=== PATIENT | male | born 1985 | race Caucasian/White ===

== ENCOUNTER 2017-03-19 13:07 | Emergency (ER) | payer SELFPAY ==
[~2017-03-19] VITALS: Ht 185.4 cm; Wt 140.6 kg
[~2017-03-19 13:07] MED LIST: ASPI1TAB PO; CEFU500T5 PO; DM/P295L13 PO; PRED20TA PO; TRAM-21 PO
[2017-03-19] MEDS ORDERED: KETOROLAC 30 MG/ML VIAL IVP ONE (14:00)
[2017-03-19] MEDS ORDERED: ASPIRIN 81 MG CHEW (CHILDREN'S ASA) PO ONE (14:00)
[2017-03-19 14:36] LABS: BASOPHILS % (AUTO) 0 % (0-10); EOSINOPHILS # (AUTO) 0.1 10^3/uL (0.0-0.3); EOSINOPHILS % (AUTO) 1 % (0-10); LYMPHOCYTES # (AUTO) 2.6 X 10^3 (1.0-4.0); LYMPHOCYTES % (AUTO) 25 % (12-44); MEAN CORPUSCULAR HEMOGLOBIN 32 PG (25-34); MEAN CORPUSCULAR HGB CONC 35 G/DL (32-36); MEAN CORPUSCULAR VOLUME 91 FL (80-99); MEAN PLATELET VOLUME 10.1 FL (7.4-10.4); MONOCYTES # (AUTO) 0.9 X 10^3 (0.0-1.0); MONOCYTES % (AUTO) 9 % (0-12); NEUTROPHILS # (AUTO) 6.5 X 10^3 (1.8-7.8); NEUTROPHILS % (AUTO) 65 % (42-75); PLATELET COUNT 221 10^3/uL (130-400); RED BLOOD COUNT 5.03 10^6/uL (4.35-5.85); RED CELL DISTRIBUTION WIDTH 12.3 % (10.0-14.5)
--- NOTE | 2017-03-19 14:39 | ED Chest Pain ---
General Chief Complaint: Chest Pain Stated Complaint: CP Nursing Triage Note: PT CO OF CHEST PAIN STATES STARTED YESTERDAY,RATES PAIN 7/10. STATES EXCEDRIN MADE BETTER LAST PM BACK THIS AM, STATES HURTS WHEN MOVE ARM CERTAIN WAY. Nursing Sepsis Screen: No Definite Risk Source: patient Exam Limitations: no limitations History of Present Illness Time seen by provider: 13:30 Initial Comments This 31-year-old young man presents to emergency room with complaints of left upper chest pain that started yesterday morning. He describes it as a tightness ranging from 5/10-7/10. It is still present now. The only exacerbating factor he has identified is a reaching motion. He woke with the pain this morning. He took Excedrin last night which did help him sleep. He does smoke tobacco and drinks a significant amount of alcohol per day. He is primarily concerned that this may be pain related to a cardiac condition and he is specifically requesting cardiac evaluation. He denies any lower extremity symptoms. Allergies and Home Medications Allergies Coded Allergies: No Known Drug Allergies (Unverified , 08/22/14) Review of Systems Constitutional: no symptoms reported EENTM: No Symptoms Reported Respiratory: No Symptoms Reported Cardiovascular: See HPI Gastrointestinal: No Symptoms Reported Genitourinary: No Symptoms Reported Musculoskeletal: see HPI Skin: no symptoms reported Psychiatric/Neurological: No Symptoms Reported Endocrine: No Symptoms Reported Past Zjmbgvs-Jloqtw-Fytxqd Hx Patient Social History Alcohol Use: Regular Use Number of Drinks Today: 0 Alcohol Beverage of Choice: Beer Recreational Drug Use: No Smoking Status: Current Everyday Smoker Type Used: Cigarettes Recent Foreign Travel: No Contact w/Someone Who Travel: No Recent Infectious Disease Expo: No Recent Hopitalizations: No Physical Abuse: No Sexual Abuse: No Immunizations Up To Date Tetanus Booster (TDap): More than 5yrs PED Vaccines UTD: No Surgeries History of Surgeries: No Respiratory History of Respiratory Disorde: No Cardiovascular History of Cardiac Disorders: No Neurological History of Neurological Disord: No Reproductive System Hx Reproductive Disorders: No Sexually Transmitted Disease: No HIV/AIDS: No Genitourinary History of Genitourinary Disor: No Gastrointestinal History of Gastrointestinal Di: No Musculoskeletal History of Musculoskeletal Dis: No Endocrine History of Endocrine Disorders: No HEENT History of HEENT Disorders: No Loss of Vision: Denies Hearing Impairment: Denies Cancer History of Cancer: No Psychosocial History of Psychiatric Problem: Yes Behavioral Health Disorders: Bipolar Suicide Risk Score: 0 Integumentary History of Skin or Integumenta: No Blood Transfusions History of Blood Disorders: No Adverse Reaction to a Blood Tr: No Physical Exam Vital Signs Vital Sign - Last 12Hours 03/19/17 13:10 Temp 97.2 Pulse 103 Resp 25 B/P (MAP) 136/99 (111) Pulse Ox 96 Capillary Refill : Less Than 3 Seconds General Appearance: No Apparent Distress, WD/WN, Obese HEENT: PERRL/EOMI, Normal ENT Inspection Neck: Normal Inspection Respiratory: Chest Non Tender, Lungs Clear, Normal Breath Sounds, No Accessory Muscle Use, No Respiratory Distress Cardiovascular: Regular Rate, Rhythm, No Edema, No Murmur, Normal Peripheral Pulses Gastrointestinal: Normal Bowel Sounds, Non Tender, Soft Extremity: Normal Inspection, Non Tender, No Calf Tenderness, No Pedal Edema, Other (negative Britany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, fly finisher II-XII Norm as Tested Skin: Normal Color, Warm/Dry Progress/Results/Core Measures Results/Orders Lab Results Laboratory Tests Test 03/19/17 14:15 Range/Units White Blood Count 10.0 4.3-11.0 10^3/uL Red Blood Count 5.03 4.35-5.85 10^6/uL Hemoglobin 16.0 13.3-17.7 G/DL Hematocrit 46 40-54 % Mean Corpuscular Volume 91 80-99 FL Mean Corpuscular Hemoglobin 32 25-34 PG Mean Corpuscular Hemoglobin Concent 35 32-36 G/DL Red Cell Distribution Width 12.3 10.0-14.5 % Platelet Count 221 130-400 10^3/uL Mean Platelet Volume 10.1 7.4-10.4 FL Neutrophils (%) (Auto) 65 42-75 % Lymphocytes (%) (Auto) 25 12-44 % Monocytes (%) (Auto) 9 0-12 % Eosinophils (%) (Auto) 1 0-10 % Basophils (%) (Auto) 0 0-10 % Neutrophils # (Auto) 6.5 1.8-7.8 X 10^3 Lymphocytes # (Auto) 2.6 1.0-4.0 X 10^3 Monocytes # (Auto) 0.9 0.0-1.0 X 10^3 Eosinophils # (Auto) 0.1 0.0-0.3 10^3/uL Basophils # (Auto) 0.0 0.0-0.1 10^3/uL Sodium Level 139 135-145 MMOL/L Potassium Level 3.9 3.6-5.0 MMOL/L Chloride Level 104 98-107 MMOL/L Carbon Dioxide Level 22 21-32 MMOL/L Anion Gap 13 5-14 MMOL/L Blood Urea Nitrogen 10 7-18 MG/DL Creatinine 0.72 0.60-1.30 MG/DL Estimat Glomerular Filtration Rate > 60 BUN/Creatinine Ratio 14 Glucose Level 103 70-105 MG/DL Calcium Level 10.0 8.5-10.1 MG/DL Total Bilirubin 0.4 0.1-1.0 MG/DL Aspartate Amino Transf (AST/SGOT) 43 H 5-34 U/L Alanine Aminotransferase (ALT/SGPT) 52 0-55 U/L Alkaline Phosphatase 75 40-136 U/L Troponin I < 0.30 <0.30 NG/ML Total Protein 7.1 6.4-8.2 GM/DL Albumin 4.2 3.2-4.5 GM/DL My Orders Orders - JAMA THOMAS MD Aspirin Chewable Tablet (Baby Aspirin Ch (03/19/17 14:00) Cbc With Automated Diff (03/19/17 14:00) Comprehensive Metabolic Panel (03/19/17 14:00) Troponin I (03/19/17 14:00) Saline Lock/Iv-Start (03/19/17 14:00) Ekg Tracing (03/19/17 14:00) Monitor-Rhythm Ecg Trace Only (03/19/17 14:00) Chest Pa/Lat (2 View) (03/19/17 14:00) Ketorolac Injection (Toradol Injection) (03/19/17 14:00) Medications Given in ED Vital Signs/I&O Vital Sign - Last 12Hours 03/19/17 03/19/17 13:10 15:20 Temp 97.2 Pulse 103 90 Resp 25 18 B/P (MAP) 136/99 (111) Pulse Ox 96 98 Blood Pressure Mean: 111 Progress Note #1: Time: 14:38 Progress Note Patient was seen and examined. Based on his history and age, cardiac cause of pain is felt very unlikely. However, patient is rather anxious that this may be pain related to a cardiac cause. He was offered evaluation with labs, chest x-ray, and EKG which he eagerly excepts. Toradol was administered for pain management. Progress Note #2: Progress Note Patient was given aspirin and Toradol which did reduce pain. Work-up was unremarkable. I spent greater than 20 min discussing alcohol and smoking cessation and other lifestyle modifications with patient and . They were appreciative and plan to follow-up with a PCP. ECG Initial ECG Impression Date: Mar 19, 2017 Initial ECG Impression Time: 14:10 Initial ECG Rate: 86 Initial ECG Rhythm: Normal Sinus Initial ECG Intervals: Normal Initial ECG Impression: Normal Comment Normal sinus rhythm with no ST elevation or depression. Borderline left axis deviation by automated read. No abnormal intervals. Diagnostic Imaging Diagonstic Imaging: Xray Plain Films/CT/US/NM/MRI: chest Comments Chest x-ray viewed by me and report reviewed. See report below: NAME: DHAVAL ROY [facility] REC#: [id number] PT STATUS: REG ER : 1985 PHYSICIAN: JAMA THOMAS MD ADMIT DATE: 03/19/17/ER Draft Date of Exam:03/19/17 CHEST PA/LAT (2 VIEW) INDICATION: Anterior chest wall pain. COMPARISON: None. FINDINGS: Frontal and lateral views of the chest demonstrate normal heart size and pulmonary vascularity. The lungs are clear. There are no signs of infiltrate, pleural effusions or pneumothoraces. The visualized osseous structures show no acute abnormalities. IMPRESSION: 1. No acute process. No signs of infiltrates, effusions or pneumothoraces. Dictated on workstation # [id number] Dict: 03/19/17 1437 Trans: 03/19/17 1438 [id number] Interpreted by: LA PAEZ MD Departure Impression Impression: Primary Impression: Atypical chest pain Additional Impressions: Alcohol dependence Qualified Codes: F10.20 - Alcohol dependence, uncomplicated Tobacco dependence Disposition: 01 HOME, SELF-CARE Condition: Improved Departure-Patient Inst. Decision time for Depature: 15:05 Referrals: [facility] (PCP/Family) Primary Care Physician Patient Instructions: Chest Pain That Is Not Caused by the Heart (DC) Add. Discharge Instructions: You may take ibuprofen up to 600 mg every 6 hours as needed for pain. Take with food or milk to avoid irritation on your stomach. Return to the emergency room if symptoms worsen. Please make a follow-up appointment with your primary care provider to discuss your general health and to seek assistance with lifestyle changes. Work towards smoking cessation and reduction in alcohol consumption. You may use [id number]-awcppmp nicotine replacement such as gum, lozenges, and patches. Do not replace cigarettes with other inhaled nicotine. Focus on eating a healthy well balanced diet with plenty of fruits, vegetables, and lean meats. Incorporate exercise such as walking into your daily routines. All discharge instructions reviewed with patient and/or family. Voiced understanding. JAMA THOMAS MD Mar 19, 2017 14:38
[2017-03-19 14:54] LABS: ALANINE AMINOTRANSFERASE 52 U/L (0-55); ALBUMIN 4.2 GM/DL (3.2-4.5); ANION GAP 13 MMOL/L (5-14); ASPARTATE AMINO TRANSFERASE 43 U/L (5-34); BILIRUBIN,TOTAL 0.4 MG/DL (0.1-1.0); BLOOD UREA NITROGEN 10 MG/DL (7-18); BUN/CREATININE RATIO 14; CARBON DIOXIDE 22 MMOL/L (21-32); CHLORIDE 104 MMOL/L (98-107); CREATININE SERUM 0.72 MG/DL (0.60-1.30); GFR ESTIMATED > 60; GLUCOSE 103 MG/DL (70-105); POTASSIUM 3.9 MMOL/L (3.6-5.0); SODIUM 139 MMOL/L (135-145); TOTAL PROTEIN 7.1 GM/DL (6.4-8.2)
[2017-03-19 15:02] LABS: TROPONIN I < 0.30 NG/ML (<0.30)
[2017-03-19 15:20] VITALS: BP 120/80
== END 2017-03-19 15:27 | disposition home or self-care (01) ==
LOC: EDUNIT# 13:07 → ER 13:10
DX: R07.89 Other chest pain (principal); F31.9 Bipolar disorder, unspecified; F10.20 Alcohol dependence, uncomplicated; F17.210 Nicotine dependence, cigarettes, uncomplicated
CPT/HCPCS: 36415; 71020; 80053; 84484; 85025; 93005; 93041

== ENCOUNTER 2017-06-12 07:39 | Emergency (ER) | payer SELFPAY ==
[~2017-06-12] VITALS: Ht 182.9 cm; Wt 142.9 kg
--- OUTSIDE RECORDS SUMMARY | 2017-06-12 07:45 | XMS REPORT ---
Author Author CONNIE MONTALVO [facility] Address Unknown Care Team Providers Care Thread Winder Name Role Phone CONNIE MONTALVO Unavailable PROBLEMS Type Condition ICD9-CM Code [id number] Code Onset Dates Condition Status SNOMED Code Problem Morbid (severe) obesity due to excess calories E66.01 Active 256338302 Problem Elevated blood pressure reading without diagnosis of hypertension R03.0 Active 941105521 Problem Elevated fasting glucose R73.01 Active 585812911 Problem Mixed hyperlipidemia E78.2 Active 969522028 Problem Right foot pain M79.671 Active 404377040511884 Problem ETOH abuse F10.10 Active 71082092 ALLERGIES No Known Allergies SOCIAL HISTORY Never Assessed PLAN OF CARE Activity Details Follow Up prn Reason:PROPHY VITAL SIGNS Blood pressure systolic 125 mmHg 2016-08-09 Blood pressure diastolic 91 mmHg 2016-08-09 MEDICATIONS Medication Instructions Dosage Frequency Start Date End Date Duration Status [place] 5-325 MG Orally every 6 hrs 1 tablet as needed 6h 4 days Active Amoxicillin 500 MG Orally every 8 hrs 1 tablet 8h 7 days Active RESULTS No Results PROCEDURES Procedure Date Ordered Result Body Site LTD ORAL EVALUATION - PROBLEM FOCUS August 09, 2016 INTRAORL-PERIAPICAL 1 FILM [id number] August 09, 2016 INTRAORL-PERIAPICAL EA ADD FILM August 09, 2016 IMMUNIZATIONS No Known Immunizations MEDICAL (GENERAL) HISTORY Type Description Date Hospitalization History Strep throat 2014
--- OUTSIDE RECORDS SUMMARY | 2017-06-12 07:45 | XMS REPORT ---
Author Author CONNIE MONTALVO [facility] Address Unknown Care Team Providers Care Dip Unit Operator Name Role Phone SELVIN CONNIE Unavailable PROBLEMS Type Condition ICD9-CM Code [id number]-KL Code Onset Dates Condition Status SNOMED Code Problem Morbid (severe) obesity due to excess calories E66.01 Active 213325675 Problem Elevated blood pressure reading without diagnosis of hypertension R03.0 Active 614037666 Problem Elevated fasting glucose R73.01 Active 741425714 Problem Mixed hyperlipidemia E78.2 Active 504699660 Problem Right foot pain M79.671 Active 685281866194810 Problem ETOH abuse F10.10 Active 51949059 ALLERGIES No Known Allergies SOCIAL HISTORY Never Assessed PLAN OF CARE Activity Details Follow Up prn Reason:Impressions for Flipper #9 VITAL SIGNS Blood pressure systolic 130 mmHg 2016-05-15 Blood pressure diastolic 96 mmHg 2016-05-15 MEDICATIONS Unknown Medications RESULTS No Results PROCEDURES Procedure Date Ordered Result Body Site LTD ORAL EVALUATION - PROBLEM FOCUS May 15, 2016 INTRAORL-PERIAPICAL 1 FILM [id number] May 15, 2016 IMMUNIZATIONS No Known Immunizations MEDICAL (GENERAL) HISTORY Type Description Date Hospitalization History Strep throat 2014
--- OUTSIDE RECORDS SUMMARY | 2017-06-12 07:46 | XMS REPORT | Continuity of Care Document ---
Author Author [facility] Organization [facility] Address Unknown Phone Unavailable Allergies Active Description Code Type Severity Reaction Onset Reported/Identified Relationship to Patient Clinical Status Yes No Known Drug Allergies [id number] Drug Allergy Unknown N/A 08/22/2014 Medications There is no data. Problems Date Dx Coded Attending Type Code Diagnosis Diagnosed By 08/24/2014 BREANNE DIAL DO Ot 276.8 HYPOPOTASSEMIA 08/24/2014 BREANNE DIAL DO S Ot 305.1 TOBACCO USE DISORDER 08/24/2014 BREANNE DIAL DO S Ot 463 ACUTE TONSILLITIS 08/24/2014 BREANNE DIAL DO S Ot 475 PERITONSILLAR ABSCESS 08/24/2014 BREANNE DIAL DO S Ot 276.8 08/24/2014 BREANNE DIAL DO S Ot 305.1 08/24/2014 BREANNE DIAL DO S Ot 463 08/24/2014 BREANNE DIAL DO S Ot 475 01/26/2015 JANE AU DO Ot F31.9 BIPOLAR DISORDER, UNSPECIFIED 01/26/2015 JANE AU DO Ot Z53.21 PROC/TRTMT NOT CRD OUT D/T PT LV BEF SEE Procedures There is no data. Results Test Result Range Complete blood count (CBC) with automated white blood cell (WBC) differential - 03/19/17 14:15 Blood leukocytes automated count (number/volume) 10.0 10*3/uL 4.3-11.0 Blood erythrocytes automated count (number/volume) 5.03 10*6/uL 4.35-5.85 Venous blood hemoglobin measurement (mass/volume) 16.0 g/dL 13.3-17.7 Blood hematocrit (volume fraction) 46 % 40-54 Automated erythrocyte mean corpuscular volume 91 [foz_us] 80-99 Automated erythrocyte mean corpuscular hemoglobin (mass per erythrocyte) 32 pg 25-34 Automated erythrocyte mean corpuscular hemoglobin concentration measurement ( mass/volume) 35 g/dL 32-36 Automated erythrocyte distribution width ratio 12.3 % 10.0-14.5 Automated blood platelet count (count/volume) 221 10*3/uL 130-400 Automated blood platelet mean volume measurement 10.1 [foz_us] 7.4-10.4 Automated blood neutrophils/100 leukocytes 65 % 42-75 Automated blood lymphocytes/100 leukocytes 25 % 12-44 Blood monocytes/100 leukocytes 9 % 0-12 Automated blood eosinophils/100 leukocytes 1 % 0-10 Automated blood basophils/100 leukocytes 0 % 0-10 Blood neutrophils automated count (number/volume) 6.5 10*3 1.8-7.8 Blood lymphocytes automated count (number/volume) 2.6 10*3 1.0-4.0 Blood monocytes automated count (number/volume) 0.9 10*3 0.0-1.0 Automated eosinophil count 0.1 10*3/uL 0.0-0.3 Automated blood basophil count (count/volume) 0.0 10*3/uL 0.0-0.1 Comprehensive metabolic panel - 03/19/17 14:15 Serum or plasma sodium measurement (moles/volume) 139 mmol/L 135-145 Serum or plasma potassium measurement (moles/volume) 3.9 mmol/L 3.6-5.0 Serum or plasma chloride measurement (moles/volume) 104 mmol/L 98-107 Carbon dioxide 22 mmol/L 21-32 Serum or plasma anion gap determination (moles/volume) 13 mmol/L 5-14 Serum or plasma urea nitrogen measurement (mass/volume) 10 mg/dL 7-18 Serum or plasma creatinine measurement (mass/volume) 0.72 mg/dL 0.60-1.30 Serum or plasma urea nitrogen/creatinine mass ratio 14 NRG Serum or plasma creatinine measurement with calculation of estimated glomerular filtration rate > NRG Serum or plasma glucose measurement (mass/volume) 103 mg/dL 70-105 Serum or plasma calcium measurement (mass/volume) 10.0 mg/dL 8.5-10.1 Serum or plasma total bilirubin measurement (mass/volume) 0.4 mg/dL 0.1-1.0 Serum or plasma alkaline phosphatase measurement (enzymatic activity/volume) 75 U/L 40-136 Serum or plasma aspartate aminotransferase measurement (enzymatic activity/ volume) 43 U/L 5-34 Serum or plasma alanine aminotransferase measurement (enzymatic activity/volume ) 52 U/L 0-55 Serum or plasma protein measurement (mass/volume) 7.1 g/dL 6.4-8.2 Serum or plasma albumin measurement (mass/volume) 4.2 g/dL 3.2-4.5 Serum or plasma troponin i.cardiac measurement (mass/volume) - 03/19/17 14:15 Serum or plasma troponin i.cardiac measurement (mass/volume) < ng/ mL <0.30 Encounters ACCT No. Visit Date/Time Discharge Status Pt. Type Provider Facility Loc./Unit Complaint [id number] 03/19/2017 13:10:00 03/19/2017 15:27:00 DIS Emergency MARTHA SALAZAR, JAMA Godfrey [facility] ER CP [id number] 01/26/2015 15:49:00 01/26/2015 16:31:00 DIS Emergency JANE AU DO [facility] ER PSYCH [id number] 08/22/2014 19:29:00 08/24/2014 11:15:00 DIS Inpatient BREANNE DIAL DO [facility] 4TH TONSILLITIS W/ MICROABSCESSES BILAT,LEUKOCYTOSIS
[2017-06-12 07:51] VITALS: BP 147/93
[2017-06-12] MEDS ORDERED: NS IV 1000 ML 1,000 ML IV SCH ×2 (08:14→08:58)
[2017-06-12 08:32] LABS: BASOPHILS % (AUTO) 0 % (0-10); EOSINOPHILS # (AUTO) 0.1 10^3/uL (0.0-0.3); EOSINOPHILS % (AUTO) 1 % (0-10); HEMATOCRIT 48 % (40-54); HEMOGLOBIN 17.3 G/DL (13.3-17.7); LYMPHOCYTES # (AUTO) 2.6 X 10^3 (1.0-4.0); LYMPHOCYTES % (AUTO) 21 % (12-44); MEAN CORPUSCULAR HEMOGLOBIN 33 PG (25-34); MEAN CORPUSCULAR HGB CONC 36 G/DL (32-36); MEAN CORPUSCULAR VOLUME 91 FL (80-99); MEAN PLATELET VOLUME 10.1 FL (7.4-10.4); MONOCYTES # (AUTO) 1.7 X 10^3 (0.0-1.0); MONOCYTES % (AUTO) 14 % (0-12); NEUTROPHILS # (AUTO) 7.9 X 10^3 (1.8-7.8); NEUTROPHILS % (AUTO) 64 % (42-75); PLATELET COUNT 251 10^3/uL (130-400); RED BLOOD COUNT 5.25 10^6/uL (4.35-5.85); RED CELL DISTRIBUTION WIDTH 11.8 % (10.0-14.5); WHITE BLOOD COUNT 12.3 10^3/uL (4.3-11.0)
--- NOTE | 2017-06-12 08:39 | ED General ---
General Chief Complaint: Lower Extremity Stated Complaint: RT LEG SWELLING Nursing Triage Note: ARRIVED VIA AMB TO ROOM 05. COMPLAINS OF NON INJURY PAIN IN RIGHT FOOT AND SWELLING. STATES PAIN GOES UP HIS LEG. STATES THE SWELLING HAS BEEN THERE FOR A COUPLE OF MONTHS. ASLO COMPLAINS OF SOME SOA WITH THIS. Nursing Sepsis Screen: No Definite Risk Source of Information: Patient, Family Exam Limitations: No Limitations History of Present Illness Date Seen by Provider: Jun 12, 2017 Time Seen by Provider: 08:00 Initial Comments This 31-year-old young man presents to the emergency room with complaints of right lower extremity swelling, pain, erythema, and heat. The lateral aspect of his right ankle is erythematous with a petechial appearance. He reports having intermittent problems with pain and swelling long-term with this right ankle. He denies any known injury or trauma. There is a small scab on the anterior surface of the ankle which may have been an entry point for infection. Patient is notably tachycardic and feels ill. He states the pain radiates up the back of his leg toward his buttocks. Patient drinks alcohol regularly but has had no alcohol today. Allergies and Home Medications Allergies Coded Allergies: No Known Drug Allergies (Unverified , 08/22/14) Patient Home Medication List Home Medication List Reviewed: Yes Constitutional: see HPI EENTM: no symptoms reported Respiratory: short of breath Cardiovascular: see HPI Gastrointestinal: no symptoms reported Genitourinary: no symptoms reported Musculoskeletal: see HPI Skin: see HPI Psychiatric/Neurological: No Symptoms Reported Hematologic/Lymphatic: No Symptoms Reported Past Jzhzuif-Vivosq-Eqyyhv Hx Patient Social History Alcohol Use: Occasionally Uses Alcohol Beverage of Choice: Beer Recreational Drug Use: No Smoking Status: Current Everyday Smoker Type Used: Cigarettes Recent Foreign Travel: No Contact w/Someone Who Travel: No Recent Infectious Disease Expo: No Recent Hopitalizations: No Immunizations Up To Date Tetanus Booster (TDap): More than 5yrs PED Vaccines UTD: No Surgeries History of Surgeries: No Respiratory History of Respiratory Disorde: No Cardiovascular History of Cardiac Disorders: No Neurological History of Neurological Disord: No Reproductive System Hx Reproductive Disorders: No Sexually Transmitted Disease: No HIV/AIDS: No Genitourinary History of Genitourinary Disor: No Gastrointestinal History of Gastrointestinal Di: No Musculoskeletal History of Musculoskeletal Dis: No Endocrine History of Endocrine Disorders: No HEENT History of HEENT Disorders: No Loss of Vision: Denies Hearing Impairment: Denies Cancer History of Cancer: No Psychosocial History of Psychiatric Problem: Yes Behavioral Health Disorders: Bipolar Integumentary History of Skin or Integumenta: No Blood Transfusions History of Blood Disorders: No Adverse Reaction to a Blood Tr: No Physical Exam-Suspected Sepsis Physical Exam Vital Signs Vital Signs - First Documented 06/12/17 07:51 Temp 97.4 Pulse 140 Resp 18 B/P (MAP) 147/93 (111) Pulse Ox 95 Capillary Refill : Less Than 3 Seconds Blood Pressure Mean: 111 General Appearance: No Apparent Distress, WD/WN HEENT: PERRL/EOMI, Normal ENT Inspection Neck: Normal Inspection Respiratory: Lungs Clear, Normal Breath Sounds, No Accessory Muscle Use, No Respiratory Distress Cardiovascular: No Edema, No Murmur, Tachycardia (regular) Gastrointestinal: Non Tender, Soft Extremity: Swelling, Other (heat and erythema with petechial appearance on the right lateral ankle. Ankle, lower leg and foot are swollen. Sensation, movement, and capillary refill intact. The foot is also infected with erythema. 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 as Tested Skin: normal color, warm/dry, other (see extremity exam) Focused Exam Evaluation Lactate Level Laboratory Tests 06/12/17 08:20: Lactic Acid Level 1.26 Lactic Acid Level Laboratory Tests Test 06/12/17 08:20 Lactic Acid Level 1.26 MMOL/L (0.50-2.00) Progress/Results/Core Measures Suspected Sepsis Recent Fever Within 48 Hours: No Infection Criteria Present: None New/Unexplained Altered Menta: No Sepsis Screen: No Definite Risk Sepsis Diagnosis: SIRS Temperature:97.4 Pulse: 140 Respiratory Rate: 18 Laboratory Tests 06/12/17 08:20: White Blood Count 12.3H Blood Pressure 147 /93 Mean: 111 Laboratory Tests 06/12/17 08:20: Lactic Acid Level 1.26 Laboratory Tests 06/12/17 08:20: Creatinine 0.84, INR Comment 1.1, Platelet Count 251, Total Bilirubin 0.9 Results/Orders Lab Results Laboratory Tests Test 06/12/17 08:20 Range/Units White Blood Count 12.3 H 4.3-11.0 10^3/uL Red Blood Count 5.25 4.35-5.85 10^6/uL Hemoglobin 17.3 13.3-17.7 G/DL Hematocrit 48 40-54 % Mean Corpuscular Volume 91 80-99 FL Mean Corpuscular Hemoglobin 33 25-34 PG Mean Corpuscular Hemoglobin Concent 36 32-36 G/DL Red Cell Distribution Width 11.8 10.0-14.5 % Platelet Count 251 130-400 10^3/uL Mean Platelet Volume 10.1 7.4-10.4 FL Neutrophils (%) (Auto) 64 42-75 % Lymphocytes (%) (Auto) 21 12-44 % Monocytes (%) (Auto) 14 H 0-12 % Eosinophils (%) (Auto) 1 0-10 % Basophils (%) (Auto) 0 0-10 % Neutrophils # (Auto) 7.9 H 1.8-7.8 X 10^3 Lymphocytes # (Auto) 2.6 1.0-4.0 X 10^3 Monocytes # (Auto) 1.7 H 0.0-1.0 X 10^3 Eosinophils # (Auto) 0.1 0.0-0.3 10^3/uL Basophils # (Auto) 0.0 0.0-0.1 10^3/uL Prothrombin Time 14.1 12.2-14.7 SEC INR Comment 1.1 0.8-1.4 Activated Partial Thromboplast Time 32 24-35 SEC D-Dimer 0.76 H 0.00-0.49 UG/ML Sodium Level 138 135-145 MMOL/L Potassium Level 3.7 3.6-5.0 MMOL/L Chloride Level 103 98-107 MMOL/L Carbon Dioxide Level 22 21-32 MMOL/L Anion Gap 13 5-14 MMOL/L Blood Urea Nitrogen 9 7-18 MG/DL Creatinine 0.84 0.60-1.30 MG/DL Estimat Glomerular Filtration Rate > 60 BUN/Creatinine Ratio 11 Glucose Level 129 H 70-105 MG/DL Lactic Acid Level 1.26 0.50-2.00 MMOL/L Calcium Level 9.7 8.5-10.1 MG/DL Total Bilirubin 0.9 0.1-1.0 MG/DL Aspartate Amino Transf (AST/SGOT) 51 H 5-34 U/L Alanine Aminotransferase (ALT/SGPT) 61 H 0-55 U/L Alkaline Phosphatase 68 40-136 U/L C-Reactive Protein High Sensitivity 9.44 H 0.00-0.50 MG/DL Total Protein 7.9 6.4-8.2 GM/DL Albumin 4.4 3.2-4.5 GM/DL Serum Alcohol < 10 <10 MG/DL My Orders Orders - JAMA THOMAS MD Cbc With Automated Diff (06/12/17 08:14) Comprehensive Metabolic Panel (06/12/17 08:14) Lactic Acid Analyzer (06/12/17 08:14) Blood Culture (06/12/17 08:14) Sputum Culture (06/12/17 08:14) Ua Culture If Indicated (06/12/17 08:14) Protime With Inr (06/12/17 08:14) Partial Thromboplastin Time (06/12/17 08:14) Chest 1 View, Ap/Pa Only (06/12/17 08:14) O2 (06/12/17 08:14) Saline Lock/Iv-Start (06/12/17 08:14) Saline Lock/Iv-Start (06/12/17 08:14) Ekg Tracing (06/12/17 08:14) Vital Signs Adult Sepsis Patie Q1H (06/12/17 08:14) Remove Rings In Anticipation O (06/12/17 08:14) Saline Lock/Iv-Start (06/12/17 08:14) Ns Iv 1000 Ml (Sodium Chloride 0.9%) (06/12/17 08:14) Alcohol (06/12/17 08:14) Hs C Reactive Protein (06/12/17 08:14) Fibrin Degradation Products (06/12/17 08:14) Ceftriaxone Injection (Rocephin Injectio (06/12/17 08:45) Saline Lock/Iv-Start (06/12/17 08:58) Ns Iv 1000 Ml (Sodium Chloride 0.9%) (06/12/17 08:58) Us Venous Lower Ext Rt (06/12/17 09:12) Clindamycin 900 Mg/50 Ml Ivpb (Cleocin P (06/12/17 09:15) Vancomycin Injection (Vancomycin Injecti (06/12/17 10:00) Ketorolac Injection (Toradol Injection) (06/12/17 11:00) Medications Given in ED Current Medications Medications Dose Ordered Sig/Mirela Route Start Time Stop Time Status Last Admin Dose Admin Clindamycin Phosphate/Dextrose 50 ml @ 100 mls/hr ONCE ONCE IV 06/12/17 09:15 06/12/17 09:44 DC 06/12/17 09:34 100 MLS/HR Vital Signs/I&O Vital Sign - Last 12Hours 06/12/17 07:51 Temp 97.4 Pulse 140 Resp 18 B/P (MAP) 147/93 (111) Pulse Ox 95 Capillary Refill : Less Than 3 Seconds Blood Pressure Mean: 111 Progress Note #1: Time: 09:13 Progress Note Patient is receiving IV fluids. Blood cultures and lactic acid were drawn. Patient is now found to have leukocytosis and elevated CRP. Clindamycin will be ordered as initial antibiotic for presumed sepsis from cellulitis. D-dimer was also elevated. An ultrasound of the right lower extremity will be performed. Progress Note #2: Time: 10:15 Progress Note Ultrasound of the right lower extremity was negative for DVT. Patient received clindamycin and will also receive vancomycin for treatment of sepsis and cellulitis. Tachycardia may also be related to withdrawal although his heart rate has improved significantly with 2 L of IV fluids. Patient does admit to drinking alcohol daily. His last drink was last night. Alcohol withdrawal protocol will be added to his bridging orders. Patient is requesting something for pain. Toradol will be ordered. Progress Note #3: Time: 11:52 Progress Note Patient was observed walking out of the ER and was caught by nursing staff. He stated his child was having an emergency and he insisted on leaving. He did allow nursing staff to remove his IV, and he didn't sign the AMA papers. He had not yet received the vancomycin. Dr. Jillian Vasquez was notified and stated she would attempt to contact him by phone. It was noted by nursing staff that patient was arguing with his on the phone prior to leaving. It should also be noted that I did explain to the patient he was being admitted because of a potentially life-threatening condition. ECG Initial ECG Impression Date: Jun 12, 2017 Initial ECG Impression Time: 08:51 Initial ECG Rate: 133 Initial ECG Rhythm: S.Tach Comment Sinus tachycardia with no ST elevation or depression. No abnormal intervals. Left axis deviation by automated read. Diagnostic Imaging Diagonstic Imaging: Xray Plain Films/CT/US/NM/MRI: chest Comments Chest x-ray viewed by me and report reviewed. See report below: NAME: [facility] REC#: [id number] PT STATUS: REG ER : 1985 PHYSICIAN: JAMA THOMAS MD ADMIT DATE: 06/12/17/ER Draft Date of Exam:06/12/17 CHEST 1 VIEW, AP/PA ONLY INDICATION: Right foot swelling. Time of exam 8:39 AM Correlation is made with prior study 03/19/2017. The heart size is normal. The pulmonary vascularity is unremarkable. The lungs are clear. No infiltrate, effusion or pneumothorax is detected. Impression: No acute cardiopulmonary process is detected. Dictated on workstation # [id number] Dict: 06/12/17 0845 Trans: 06/12/17 0848 MARIA T [id number] Interpreted by: MEERA VASQUEZ MD Departure Communication (Admissions) Time/Spoke to Admitting Phy: 09:[address] Jillian Vasquez Impression Impression: Primary Impression: Sepsis Qualified Codes: A41.9 - Sepsis, unspecified organism Additional Impressions: Cellulitis of right lower extremity Sinus tachycardia Alcohol dependence Qualified Codes: F10.29 - Alcohol dependence with unspecified alcohol-induced disorder Left against medical advice Disposition: 07 AGAINST MEDICAL ADVICE Condition: Against Medical Advice Admissions Decision to Admit Reason: Admit from ER (General) Decision to Admit/Date: Jun 12, 2017 Time/Decision to Admit Time: 09:00 Departure-Patient Inst. Referrals: [facility] (PCP/Family) Primary Care Physician JAMA THOMAS MD Jun 12, 2017 08:39
[2017-06-12 08:45] LABS: INR 1.1 (0.8-1.4); PROTHROMBIN TIME PATIENT 14.1 SEC (12.2-14.7)
[2017-06-12] MEDS ORDERED: cefTRIAXone INJECTION 1,000 MG in NS (IVPB) 100 ML IV ONE (08:45)
--- NOTE | 2017-06-12 08:48 | Diagnostic Imaging Report ---
INDICATION: Right foot swelling. Time of exam 8:39 AM Correlation is made with prior study 03/19/2017. The heart size is normal. The pulmonary vascularity is unremarkable. The lungs are clear. No infiltrate, effusion or pneumothorax is detected. Impression: No acute cardiopulmonary process is detected. Dictated by: Dictated on workstation # [id number]
[2017-06-12 08:53] LABS: ALANINE AMINOTRANSFERASE 61 U/L (0-55); ALBUMIN 4.4 GM/DL (3.2-4.5); ALKALINE PHOSPHATASE 68 U/L (40-136); BILIRUBIN,TOTAL 0.9 MG/DL (0.1-1.0); BUN/CREATININE RATIO 11; CALCIUM 9.7 MG/DL (8.5-10.1); CARBON DIOXIDE 22 MMOL/L (21-32); CHLORIDE 103 MMOL/L (98-107); CREATININE SERUM 0.84 MG/DL (0.60-1.30); GFR ESTIMATED > 60; GLUCOSE 129 MG/DL (70-105); POTASSIUM 3.7 MMOL/L (3.6-5.0); SODIUM 138 MMOL/L (135-145); TOTAL PROTEIN 7.9 GM/DL (6.4-8.2)
[2017-06-12 09:10] LABS: FIBRIN DEGRADATION PRODUCTS 0.76 UG/ML (0.00-0.49)
[2017-06-12] MEDS ORDERED: CLINDAMYCIN 900 MG/50 ML IVPB 50 ML IV ONE (09:15)
[2017-06-12] MEDS ORDERED: VANCOMYCIN INJECTION 1,000 MG in NS (IVPB) 250 ML IV ONE (10:00)
--- NOTE | 2017-06-12 10:09 | Diagnostic Imaging Report ---
PROCEDURE: US right lower extremity venous. TECHNIQUE: Multiple real-time grayscale images were obtained over the right lower extremity in various projections. Additional duplex Doppler and color Doppler images were also obtained. INDICATION: Erythema and swelling of right lower extremity. EXAMINATION: Grayscale and color Doppler evaluation of the deep veins of the right lower extremity were performed with waveform analysis. FINDINGS: Continuous venous flow is present. No intraluminal filling defect is identified. There is normal compressibility and response to augmentation. No abnormal perivascular fluid collection is identified. IMPRESSION: No ultrasound evidence of right lower extremity deep venous thrombosis. Dictated by: Dictated on workstation # [id number]
[2017-06-12] MEDS ORDERED: KETOROLAC 30 MG/ML VIAL IVP ONE (11:00)
--- OUTSIDE RECORDS SUMMARY | 2017-06-12 11:35 | XMS REPORT | Continuity of Care Document ---
Author Author [facility] Organization [facility] Address Unknown Phone Unavailable Allergies Active Description Code Type Severity Reaction Onset Reported/Identified Relationship to Patient Clinical Status Yes No Known Drug Allergies [id number] Drug Allergy Unknown N/A 08/22/2014 Medications There [...] Status Pt. Type Provider Facility Loc./Unit Complaint [id number] 03/19/2017 13:10:00 03/19/2017 15:27:00 DIS Emergency MARTHA SALAZAR, JAMA Godfrey [facility] ER CP [id number] 01/26/2015 15:49:00 01/26/2015 16:31:00 DIS Emergency JANE AU DO [facility] ER PSYCH [id number] 08/22/2014 19:29:00 08/24/2014 11:15:00 DIS Inpatient BREANNE DIAL DO [facility] 4TH TONSILLITIS W/ MICROABSCESSES BILAT,LEUKOCYTOSIS
[2017-06-12] MEDS ORDERED: IBUP-30 PO ×2 (15:09)
[2017-06-12] MEDS ORDERED: MULT-993 PO ×2 (15:10)
[2017-06-13] MEDS ORDERED: CLIN300C11 PO ×2 (08:52)
== END 2017-06-12 11:48 | disposition left against medical advice (07) ==
LOC: EDUNIT# 07:39 → ER 07:41 → UNDOADMIN 10:03 → 4TH 10:03 → ER 11:48
DX: A41.9 Sepsis, unspecified organism (principal); L03.115 Cellulitis of right lower limb; R00.0 Tachycardia, unspecified; F10.20 Alcohol dependence, uncomplicated; F31.9 Bipolar disorder, unspecified; F17.210 Nicotine dependence, cigarettes, uncomplicated
CPT/HCPCS: 36415; 71045; 80053; 80320; 83605; 85025; 85379; 85610; 85730; 86141; 87040; 93005; 96361; 96365; 96375

== ENCOUNTER 2017-06-12 14:05 | Inpatient (IN) | payer SELFPAY ==
[~2017-06-12] VITALS: Ht 185.4 cm; Wt 142.9 kg
--- OUTSIDE RECORDS SUMMARY | 2017-06-12 14:10 | XMS REPORT | Continuity of Care Document ---
Author Author [facility] Organization [facility] Address Unknown Phone Unavailable Allergies Active Description Code Type Severity Reaction Onset Reported/Identified Relationship to Patient Clinical Status Yes No Known Drug Allergies [id number] Drug Allergy Unknown N/A 08/22/2014 Medications There [...] Status Pt. Type Provider Facility Loc./Unit Complaint [id number] 03/19/2017 13:10:00 03/19/2017 15:27:00 DIS Emergency MARTHA SALAZAR, JAMA Godfrey [facility] ER CP [id number] 01/26/2015 15:49:00 01/26/2015 16:31:00 DIS Emergency JANE AU DO [facility] ER PSYCH [id number] 08/22/2014 19:29:00 08/24/2014 11:15:00 DIS Inpatient BREANNE DIAL DO [facility] 4TH TONSILLITIS W/ MICROABSCESSES BILAT,LEUKOCYTOSIS
[2017-06-12] MEDS ORDERED: 1/2 NS IV SOLUTION 1,000 ML IV PRN (14:46)
[2017-06-12] MEDS ORDERED: ONDANSETRON 4 MG/5 ML ORAL SOLN (ZOFRAN) 5 ML PO PRN (15:00)
[2017-06-12] MEDS ORDERED: D5 1/2 NS 1000 ML IV SOLUTION 1,000 ML IV PRN (15:00)
[2017-06-12] MEDS ORDERED: LORazepam INJ 2 MG/ML (ATIVAN) VIAL IM/IV PRN (15:00)
[2017-06-12] MEDS ORDERED: LORazepam 1 MG (ATIVAN) TAB PO PRN (15:00)
[2017-06-12] MEDS ORDERED: ACETAMINOPHEN 500 MG TAB (TYLENOL) PO PRN (15:00)
[2017-06-12] MEDS ORDERED: LORazepam INJ 2 MG/ML (ATIVAN) VIAL IV PRN (15:00)
[2017-06-12] MEDS ORDERED: IBUP-30 PO ×2 (15:09)
[2017-06-12] MEDS ORDERED: MULT-993 PO ×2 (15:10)
[2017-06-12] MEDS: NS IV 1000 ML 1,000 ML IV SCH ×2 (15:37→22:25)
[2017-06-12] MEDS: KETOROLAC 30 MG/ML VIAL IVP PRN ×2 (15:38→23:53)
[2017-06-12] MEDS ORDERED: INFLUENZA TRIvalent 2017-2018 0.5 ML/45 MCG SYR IM ONE (15:45)
[2017-06-12 16:50] VITALS: BP 142/89
[2017-06-12 20:28] VITALS: BP 129/71
[2017-06-12] MEDS: MAGNESIUM OXIDE (MAG-OX)400 MG TAB PO SCH (21:04)
[2017-06-12] MEDS: CLINDAMYCIN 600 MG/50 ML IVPB 50 ML IV SCH (21:25)
[2017-06-12] MEDS: morphine INJ 4 MG/ML 1 ML (VIAL/SYRINGE) IVP PRN (22:22)
[2017-06-13] VITALS: BP 123/68
[2017-06-13 03:30] VITALS: BP 141/96
[2017-06-13] MEDS: NS IV 1000 ML 1,000 ML IV SCH (05:08)
[2017-06-13] MEDS: CLINDAMYCIN 600 MG/50 ML IVPB 50 ML IV SCH (05:08)
[2017-06-13] MEDS: morphine INJ 4 MG/ML 1 ML (VIAL/SYRINGE) IVP PRN (05:14)
[2017-06-13 06:29] LABS: MEAN PLATELET VOLUME 10.9 FL (7.4-10.4); RED BLOOD COUNT 4.26 10^6/uL (4.35-5.85); RED CELL DISTRIBUTION WIDTH 11.9 % (10.0-14.5); WHITE BLOOD COUNT 8.4 10^3/uL (4.3-11.0)
[2017-06-13 06:50] LABS: BUN/CREATININE RATIO 15; CALCIUM 8.3 MG/DL (8.5-10.1); CARBON DIOXIDE 20 MMOL/L (21-32); CHLORIDE 109 MMOL/L (98-107); CREATININE SERUM 0.72 MG/DL (0.60-1.30); GFR ESTIMATED > 60; GLUCOSE 138 MG/DL (70-105); POTASSIUM 3.6 MMOL/L (3.6-5.0); SODIUM 139 MMOL/L (135-145)
[2017-06-13] MEDS ORDERED: MULTIVIT W/MINERALS TAB (THERAGRAN M) PO SCH (07:00)
[2017-06-13] MEDS ORDERED: THIAMINE 100 MG (VITAMIN B-1) TAB PO SCH (07:00)
[2017-06-13 08:51] VITALS: BP 124/85
[2017-06-13] MEDS ORDERED: CLIN300C11 PO ×2 (08:52)
--- NOTE | 2017-06-13 08:55 | Discharge Instructions ---
Discharge [facility] Discharge Medications New, Converted or Re-Newed RX: Transmitted to Pharmacy New Medications: Clindamycin HCl (Clindamycin HCl) 300 Mg Capsule 300 MG PO QID for 7 Days, #28 CAP 0 Refills Continued Medications: Ibuprofen (Advil) 200 Mg Tablet 400-800 MG PO TID PRN for PAIN-MILD, TAB Multivits-Minerals/FA/Lycopene (One Daily Men's Health Tablet) 1 Each Tablet 1 TAB PO DAILY, TAB Patient Instructions Goal/Follow Up Appt: BC RILEY APRN JUNE 18 AT 1:20 Patient Instructions: PLEASE TAKE ALL ANTIBIOTICS PRESCRIBED. DO NOT WEAR SANDALS WHILE THE AREA IS HEALING. KEEP THE AREA CLEAN AND DRY WHILE HEALING. Return to The Hospital For: FEVER, INCREASED REDNESS OF THE FOOT. Activity & Diet Discharge Diet: No Restrictions Activity as Tolerated: Yes Copy Copies To 1: MAGDY JETT APRN, MD Jun 13, 2017 8:55 am
--- NOTE | 2017-06-13 08:55 | Short Stay Summary ---
History of Present Illness History of Present Illness Reason for visit/HPI Pleasant 31yo gentleman presented to ER yesterday with complaints that his right leg was swollen and red for the past 2 days. Patient states the right ankle has caused pain in the past. He has not had any recent trauma or injury to the ankle. He noticed that the longer he stood on it, the area because increasingly painful. He has not had any fevers. He does work but wears shoes. Of note, patient was going to be admitted yesterday but left the ER AMA due to a family emergency. HE then presented back several hours later desiring admission. Date of Admission Jun 12, 2017 at 2:05 pm Date of Discharge June 13, 2017 Time Seen by Provider: 09:00 Attending Physician Magdy Huynh MD Admitting Physician [place] [facility] Consult Allergies and Home Medications Allergies Coded Allergies: No Known Drug Allergies (Unverified , 08/22/14) Home Medications Clindamycin HCl 300 Mg Capsule, 300 MG PO QID Prescribed by: MAGDY HUYNH on 06/13/17 0852 Ibuprofen 200 Mg Tablet, 400-800 MG PO TID PRN for PAIN-MILD, (Reported) Multivits-Minerals/FA/Lycopene 1 Each Tablet, 1 TAB PO DAILY, (Reported) Patient Home Medication List Home Medication List Reviewed: Yes Past Xhoghgk-Qhbzds-Qhclpw Hx Patient Social History Alcohol Use: Regular Use Number of Drinks Today: AA Alcohol Beverage of Choice: Beer Recreational Drug Use: No Smoking Status: Current Everyday Smoker Type Used: Cigarettes Physical Abuse Screen: No Sexual Abuse: No Recent Foreign Travel: No Contact w/other who traveled: No Recent Hopitalizations: No Recent Infectious Disease Expo: No Immunizations Up To Date Tetanus Booster (TDap): More than 5yrs Pediatric: No Seasonal Allergies Seasonal Allergies: No Surgeries No Respiratory No Cardiovascular No Neurological No Reproductive System Hx Reproductive Disorders: No Sexually Transmitted Disease: No HIV/AIDS: No Genitourinary No Gastrointestinal No Musculoskeletal No Endocrine History of Endocrine Disorders: No HEENT History of HEENT Disorders: No Loss of Vision: Denies Hearing Impairment: Denies Cancer No Psychosocial History of Psychiatric Problem: Yes (Diagnosed as child but pt takes no meds, pt states "i was just a bad kid".) Behavioral Health Disorders: Bipolar Integumentary History of Skin or Integumenta: No Blood Transfusions History of Blood Disorders: No Adverse Reaction to a Blood Tr: No Family Medical History Family Hx: Patient reports no known family medical history. Constitutional: see HPI All Other Systems Reviewed Negative Unless Noted: Yes Physical Exam Vital Signs Vital Signs - First Documented 06/12/17 06/12/17 14:30 16:50 Temp 99.2 Pulse 120 Resp 20 B/P (MAP) 142/89 (106) Pulse Ox 97 O2 Delivery Room Air Capillary Refill : General Appearance: No Apparent Distress, WD/WN HEENT: PERRL/EOMI, Normal ENT Inspection, Pharynx Normal Neck: Full Range of Motion, Normal Inspection, Non Tender, Supple, Carotid Bruit Respiratory: Chest Non Tender, Lungs Clear, Normal Breath Sounds, No Accessory Muscle Use, No Respiratory Distress Cardiovascular: Regular Rate, Rhythm, No Edema, No Gallop, No JVD, No Murmur, Normal Peripheral Pulses Gastrointestinal: Normal Bowel Sounds, No Organomegaly, No Pulsatile Mass, Non Tender, Soft Back: Normal Inspection, No CVA Tenderness, No Vertebral Tenderness Extremity: Normal Capillary Refill, Normal Inspection, Normal Range of Motion, Non Tender, No Calf Tenderness, No Pedal Edema Neurologic/Psychiatric: Alert, Oriented x3, No Motor/Sensory Deficits, Normal 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, 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 Skin: Normal Color, Warm/Dry Clinical Quality Measures DVT/VTE Risk/Contraindication: Risk Factor Score Per Nursin RFS Level Per Nursing on Admit: 3=High Short Stay Diagnosis Discharge Diagnosis-Short Stay Admission Diagnosis: CELLULITIS, RIGHT LOWER EXTREMITY ALCOHOL USE Final Discharge Diagnosis: SAME Conclusion Labs Laboratory Tests 06/13/17 05:20: White Blood Count 8.4, Red Blood Count 4.26L, Hemoglobin 14.0, Hematocrit 40, Mean Corpuscular Volume 93, Mean Corpuscular Hemoglobin 33, Mean Corpuscular Hemoglobin Concent 35, Red Cell Distribution Width 11.9, Platelet Count 197, Mean Platelet Volume 10.9H, Sodium Level 139, Potassium Level 3.6, Chloride Level 109H, Carbon Dioxide Level 20L, Anion Gap 10, Blood Urea Nitrogen 11, Creatinine 0.72, Estimat Glomerular Filtration Rate > 60, BUN/Creatinine Ratio 15, Glucose Level 138H, Calcium Level 8.3L Conclusion/Plan Patient was admitted for IV antibiotics in light of his elevated CRP and WBC. He received IV clindamycin with excellent improvemetn of the area. He was stable and ready for discharge the following morning with good resolution of his WBC and afebrile. He was sent him with a 7 day course of clindamycin. He was instructed not to wear sandals and to protect the feet while the area heals. Of note, patient drinks alcohol regularly, and he was placed on alcohol withdrawal precautions, but no withdrawal sx were seen while in house. Copy Copies To 1: MAGDY TOBIN APRN, MD Jun 13, 2017 8:55 am
[2017-06-13] MEDS ORDERED: FOLIC ACID 1 MG TAB PO SCH (09:00)
[2017-06-13] MEDS: MAGNESIUM OXIDE (MAG-OX)400 MG TAB PO SCH (09:25)
[2017-06-13] MEDS: KETOROLAC 30 MG/ML VIAL IVP PRN (09:25)
== END 2017-06-13 11:10 | disposition home or self-care (01) | DRG 603 ==
LOC: 4TH 14:05
PROVIDERS: ADMIT Pediatrics; ATTEND Pediatrics
DX: L03.116 Cellulitis of left lower limb (principal); F17.210 Nicotine dependence, cigarettes, uncomplicated; Z72.89 Other problems related to lifestyle
CPT/HCPCS: 36415; 80048; 85027